=== PATIENT | female | born 1940 | race Caucasian/White ===

== ENCOUNTER 2021-12-28 11:51 | Emergency (ER) | payer OTHER ==
[2021-12-28 12:07] VITALS: BP 152/87; PULSE 70; RESP 16; TEMP 98; BMI 30.9
[2021-12-28] MEDS ORDERED: LIDOCAINE 5% TOPICAL PATCH TP ONE (12:25)
[2021-12-28] MEDS ORDERED: LIDOCAINE 5% TOPICAL PATCH ONE (12:37)
[2021-12-28] MEDS ORDERED: CYCLOBENZAPRINE HCL 10 MG TABLET (FP) PO ONE (13:25)
[2021-12-28] MEDS ORDERED: CYCLOBENZAPRINE HCL 5 MG TABLET ONE (13:44)
== END 2021-12-28 15:03 | disposition home or self-care (01) ==
LOC: FER 11:51
DX: S39.012A Strain of muscle, fascia and tendon of lower back, initial encounter (principal); M25.551 Pain in right hip; W18.49XA Other slipping, tripping and stumbling without falling, initial encounter
CPT/HCPCS: 72100-TC-FY; 73502-TC-RT-FY; 73560-TC-RT-FY; 99284-25